=== PATIENT | male | born 1970 | race Caucasian/White ===

== ENCOUNTER 2017-08-27 00:12 | Emergency (ER) | payer MEDICAID ==
[~2017-08-27] VITALS: Ht 177.8 cm; Wt 90.7 kg
[2017-08-27 00:25] VITALS: BP 110/75
--- NOTE | 2017-08-27 01:19 | NUR ---
CALLED PT IN [facility], NO RESPONSE
--- NOTE | 2017-08-27 01:35 | NUR ---
CALLED IN [facility]OB[facility] NO RESPONSE
== END 2017-08-27 01:36 | disposition left against medical advice (07) ==
LOC: ER 00:13
DX: Z53.21 Procedure and treatment not carried out due to patient leaving prior to being seen by health care provider (principal)
CPT/HCPCS: A4606; Z7610

== ENCOUNTER 2019-01-02 02:54 | Emergency (ER) | payer MEDICAID ==
[~2019-01-02] VITALS: Ht 177.8 cm; Wt 90.7 kg
[2019-01-02 03:22] VITALS: BP 141/87
[2019-01-02] MEDS ORDERED: ALBUTEROL FS 2.5 MG/3 ML VIAL.NEB NEB ONE (04:00)
[2019-01-02] MEDS ORDERED: IPRATROPIUM NEB FS 0.5 MG/2.5 ML AMPUL.NEB NEB ONE (04:00)
[2019-01-02] MEDS ORDERED: ALBUTEROL FS 2.5 MG/3 ML VIAL.NEB ONE (04:15)
[2019-01-02] MEDS ORDERED: IPRATROPIUM NEB FS 0.5 MG/2.5 ML AMPUL.NEB ONE (04:15)
--- NOTE | 2019-01-02 04:52 | NUR ---
Patient discharged to home in stable condition. Written and verbal after care instructions given. Patient verbalizes understanding of instruction. pt ambulatory with a steady gait
== END 2019-01-02 04:54 | disposition home or self-care (01) ==
LOC: ER 03:01
DX: I10 Essential (primary) hypertension (principal); J30.9 Allergic rhinitis, unspecified; J98.01 Acute bronchospasm; Z90.89 Acquired absence of other organs

== ENCOUNTER 2020-11-27 08:13 | Emergency (ER) | payer MEDICAID ==
[~2020-11-27] VITALS: Ht 177.8 cm; Wt 104.3 kg
[2020-11-27 08:28] VITALS: BP 138/101
--- NOTE | 2020-11-27 08:43 | NUR ---
Patient discharged to home in stable condition. Written and verbal after care instructions given. Patient verbalizes understanding of instruction.
== END 2020-11-27 08:45 | disposition home or self-care (01) ==
LOC: ER 08:16
DX: L73.2 Hidradenitis suppurativa (principal); I10 Essential (primary) hypertension

== ENCOUNTER 2022-11-06 16:30 | Inpatient (IN) | payer MEDICAID ==
[~2022-11-06] VITALS: Ht 172.7 cm; Wt 119.3 kg
--- NOTE | 2022-11-06 17:23 | NUR ---
PT PRESENTS WITH WORSENING SOB X 2 DAYS. AUDIBLE WHEEZES BOTH INSPIRATION AND EXPIRATION. O2 SAT AT 90% ROOM AIR. BILATERAL EDEMA NOTED. PT ATTACHED TO THE MONITOR AND 6L NC, AAOX4. DR. KLINE AT BEDSIDE FOR EVAL.
--- NOTE | 2022-11-06 17:25 | NUR ---
ESTABLISHED IV 20G LEFT WRIST. BLOOD DRAWN, SENT TO LAB.
[2022-11-06] MEDS ORDERED: methylPREDNISolone SOD SUCC 125 MG/2ML VIAL ONE (17:28)
[2022-11-06] MEDS ORDERED: methylPREDNISolone SOD SUCC 125 MG/2ML VIAL IV ONE (17:30)
[2022-11-06] MEDS ORDERED: ALBUTEROL FS 2.5 MG/3 ML VIAL.NEB CONTNEB ONE (17:30)
[2022-11-06] MEDS ORDERED: IPRATROPIUM NEB FS 0.5 MG/2.5 ML AMPUL.NEB NEB ONE (17:30)
[2022-11-06 17:36] LABS: BASOPHILS # (AUTO) 0.1 K/uL (0.0-0.2); BASOPHILS % (AUTO) 0.9 % (0.0-2.0); EOSINOPHILS % (AUTO) 10.3 % (0.0-6.0); HEMATOCRIT 50 % (39-51); HEMOGLOBIN 16.5 g/dL (13.5-17.5); LYMPHOCYTES # (AUTO) 1.8 K/uL (0.8-4.8); LYMPHOCYTES % (AUTO) 23.8 % (20.0-44.0); MEAN CORPUSCULAR HGB CONC 33 g/dl (31.0-36.0); MEAN CORPUSCULAR VOLUME 91 fL (80-96); MONOCYTES # (AUTO) 0.8 K/uL (0.1-1.30); MONOCYTES % (AUTO) 10.2 % (2.0-12.0); NEUTROPHILS # (AUTO) 4.1 K/uL (1.8-8.9); NEUTROPHILS % (AUTO) 54.8 % (43.0-81.0); PLATELET COUNT (AUTO) 242 K/uL (150-450); RED BLOOD CELL COUNT(AUTO) 5.48 MIL/uL (4.5-6.0); WHITE BLOOD COUNT (AUTO) 7.4 K/uL (4.3-11.0)
[2022-11-06] MEDS ORDERED: ALBUTEROL FS 2.5 MG/3 ML VIAL.NEB ONE ×2 (17:46→22:21)
[2022-11-06] MEDS ORDERED: IPRATROPIUM NEB FS 0.5 MG/2.5 ML AMPUL.NEB ONE (17:46)
[2022-11-06 17:57] LABS: CALCIUM, SERUM 8.7 mg/dL (8.5-10.1); CARBON DIOXIDE 30 mmol/L (21-32); CHLORIDE 99 mmol/L (98-107); CREATININE 1.1 mg/dL (0.6-1.3); GLUCOSE 244 mg/dL (74-106); POTASSIUM 3.8 mmol/L (3.5-5.1); SODIUM SERUM 134 mmol/L (136-145); UREA NITROGEN, BLOOD 16 mg/dL (7-18)
[2022-11-06 18:08] LABS: ALANINE AMINOTRANSFERASE 64 U/L (12-78); ALBUMIN 3.5 g/dL (3.4-5.0); ALKALINE PHOSPHATASE 60 U/L (46-116); ASPARTATE AMINOTRANSFERASE 31 U/L (15-37); BILIRUBIN,DIRECT 0.1 mg/dL (0.0-0.2); BILIRUBIN,TOTAL 0.3 mg/dL (0.2-1.0); TOTAL PROTEIN, SERUM 7.7 g/dL (6.4-8.2)
--- NOTE | 2022-11-06 18:11 | NUR ---
CHANTE BED PER DR KLINE
--- NOTE | 2022-11-06 18:35 | NUR ---
COVID SWAB COLLECTED AND SENT TO LAB
--- NOTE | 2022-11-06 19:34 | NUR ---
RECEIVED REPORT FROM KASSY KATZ. PATIENT IS AAOX4. ABLE TO MAKE NEEDS KNOWN. PATIENT CAME EARLIER WITH CC OF SOB. PATIENT IS ON BIPAP. WITH IV MICHAEL ON LEFT WRIST G20. PATIENT IS ATTACHED TO MONITOR. VITALS CHECKED.
--- NOTE | 2022-11-06 19:35 | NUR ---
BIPAP SETTING /. PATIENT IS TOLERATING ON ROOM AIR 94% OXYGEN SATS
[2022-11-06] MEDS ORDERED: IPRATROPIUM NEB FS 0.5 MG/2.5 ML AMPUL.NEB NEB PRN (21:00)
[2022-11-06] MEDS ORDERED: HYDROCODONE/APAP 5/325MG TABLET PO PRN (21:00)
[2022-11-06] MEDS ORDERED: DEXTROSE 50%-WATER 50 ML DISP.SYRIN IV PRN (21:00)
[2022-11-06] MEDS ORDERED: ALBUTEROL FS 2.5 MG/3 ML VIAL.NEB NEB ONE ×2 (21:00)
[2022-11-06] MEDS ORDERED: *INSULIN REGULAR(HUMULIN R)HUM 100 UNIT/ML VIAL SQ PRN (21:00)
[2022-11-06] MEDS ORDERED: INSULIN REGULAR, HUMAN 100 UNIT/ML 3 ML VIAL SQ PRN (21:00)
[2022-11-06] MEDS ORDERED: LEVOFLOXACIN 500 MG /D5W 100ML 500 MG in PREMIX 1 EA IV SCH (21:00)
--- NOTE | 2022-11-06 21:39 | NUR ---
FAMILY AT BEDSIDE
--- NOTE | 2022-11-06 21:46 | NUR ---
CHANTE BED 104
--- NOTE | 2022-11-06 21:50 | NUR ---
TO GIVE REPORT FOR PATIENT. KASSY GONZALES WILL CALL BACK.
[2022-11-06] MEDS ORDERED: BLOOD SUGAR DIAGNOSTIC 1 EACH STRIP VI SCH (22:00)
--- NOTE | 2022-11-06 22:06 | NUR ---
REPORT GIVEN TO LALO VERDUZCO
--- NOTE | 2022-11-06 22:55 | NUR ---
CHANTE RN NOTES RECEIVED PTS IN ER A/O X4 , ON NC AT 2 LITERS OF O2 SATING 95% , WITH ADMITTED DX OF COPD EXACERBATION ,ROUTINE ADMISSION CARE DONE . PTS IS FULL CODE NKDA. PTS WITH INTACT SKIN , V/S BP 153/105 ,CLONIDINE 0.1MG GIVEN ORDERED ,STARTED ON IV ATB ORDERED ALL DUE MEDS GIVEN ORDERED GIRLFRIEND AT BEDSIDE UPDATED WITH PTS CONDITION . PTS WITH LEFT WRIST g20 INTACT AND PATENT WILL CONTINUE TO MONITOR PTS.
--- NOTE | 2022-11-06 22:58 | NUR ---
TRANSFER TO ROOM VIA ACLS PROTOCOL
[2022-11-06 23:14] VITALS: BP 153/105
[2022-11-06] MEDS ORDERED: LEVOFLOXACIN 250 MG /D5W 50 ML 100 ML IV ONE (23:14)
[2022-11-07] VITALS: BP 153/105
[2022-11-07] MEDS: CLONIDINE HCL 0.1 MG TABLET PO PRN ×2 (00:01→06:47)
[2022-11-07] MEDS: IPRATROPIUM NEB FS 0.5 MG/2.5 ML AMPUL.NEB NEB SCH ×2 (00:35→09:54)
[2022-11-07 04:00] VITALS: BP 174/101
[2022-11-07] MEDS ORDERED: ALBUTEROL FS 2.5 MG/3 ML VIAL.NEB NEB PRN (06:30)
[2022-11-07] MEDS ORDERED: ACETAMINOPHEN 325 MG TABLET PO PRN (06:30)
[2022-11-07] MEDS: methylPREDNISolone SOD SUCC 40 MG/ML VIAL IV SCH ×2 (06:44)
[2022-11-07 06:47] VITALS: BP 171/100
--- NOTE | 2022-11-07 06:55 | NUR ---
[id number] Patient signed out AMA due to unexpected of his mother this morning. Advised to go to nearest ER if he becomes short of breath of there's a change of condition. Patient verbalized understanding of instruction. Taken to lobby via wheel chair, girlfriend picked up patient. He's in stable condition with no complain of shortness of breath.
--- NOTE | 2022-11-07 06:57 | NUR ---
0657 Dr. Howell made aware that patient signed out against medical advice.
--- NOTE | 2022-11-07 06:58 | NUR ---
daniel rn notes Pts left AMA at this time explain r/b pts still want to go home ,Dr gallagher made aware
--- NOTE | 2022-11-07 07:00 | NUR ---
0700 Nursing Ux Specialist Vonnie notified that patient signed out AMA.
[2022-11-07] MEDS ORDERED: ALBUTEROL FS 2.5 MG/3 ML VIAL.NEB NEB SCH (07:35)
[2022-11-07] MEDS ORDERED: AMLODIPINE BESYLATE 5 MG TABLET PO SCH (09:00)
== END 2022-11-07 06:00 | disposition left against medical advice (07) | DRG 140 ==
LOC: ER 16:30 → TELE-TD 22:09
PROVIDERS: ADMIT Internal Medicine; ATTEND Internal Medicine
DX: J44.1 Chronic obstructive pulmonary disease with (acute) exacerbation (principal); J96.02 Acute respiratory failure with hypercapnia; F17.210 Nicotine dependence, cigarettes, uncomplicated; I10 Essential (primary) hypertension; J45.901 Unspecified asthma with (acute) exacerbation; Z20.822 Contact with and (suspected) exposure to COVID-19; R73.9 Hyperglycemia, unspecified; E66.9 Obesity, unspecified; Z68.41 Body mass index [BMI] 40.0-44.9, adult
CPT/HCPCS: 36415; 36600; 71045-TC; 80048-TC; 80076-TC; 82803-TC; 82962-TC; 83880; 84484-TC; 85025-TC; 87081-TC; 94660; A4216; C9803; G0378; J1815; J1956; J2920; J2930